=== PATIENT | male | born 1965 | race Caucasian/White ===

== ENCOUNTER 2017-01-02 10:04 | Emergency (ER) | payer OTHER ==
[~2017-01-02] VITALS: Ht 170.2 cm; Wt 80.0 kg
[2017-01-02 10:07] VITALS: BP 139/67; PULSE 67; RESP 20; TEMP 97.6; O2SAT 98
[2017-01-02] MEDS ORDERED: LISI10TA3 PO (10:33)
[2017-01-02] MEDS ORDERED: PROZ20CA11 PO (10:33)
[2017-01-02] MEDS ORDERED: ABIL10TA8 PO (10:33)
[2017-01-02] MEDS ORDERED: TRAZ100T10 PO (10:34)
[2017-01-02] MEDS ORDERED: METO50TA PO (10:34)
[2017-01-02] MEDS ORDERED: BUSP5TAB PO (10:44)
--- NOTE | 2017-01-02 10:51 | PD ---
HPI Chief Complaint: Anxiety Time Seen by Provider: 10:25 Travel History International Travel<30 days: No Contact w/Intl Traveler<30days: No Traveled to known affect area: No History of Present Illness HPI 51-year-old male presents to the emergency department complaining of anxiety that started about 1 month ago. Patient states that he saw his PCP and he was prescribed albuterol and. Patient stated this medication did not work. Patient also states she saw his psychiatrist and prescribed Prozac and has been on this medication for 1-2 weeks. Patient states this medication is not helping either. Patient has a history of drug or phobia and has been well up until about one month ago. Previously patient examined asked with good relief. 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 Patient has a history of high blood pressure and takes metoprolol lisinopril. Patient has fever, chills, pain. Patient currently lives with his partner at home. He denies suicidal or homicidal ideations. PFSH Past Medical History Depression: Yes High Cholesterol: Yes Hypertension: Yes Tetanus Vaccination: Unknown Influenza Vaccination: No Past Surgical History Tonsillectomy: Yes Social History Alcohol Use: Yes Tobacco Use: Yes (1/2 ppd - 1ppd) Substance Use: No Allergies-Medications (Allergen,Severity, Reaction): Coded Allergies: Sulfa (Sulfonamide Antibiotics) (Verified Allergy, Unknown, SOB, 01/02/17) Reported Meds & Prescriptions Reported Meds & Active Scripts Active Klonopin (Clonazepam) 1 Mg Tab 1 Mg PO BID Reported Trazodone (Trazodone HCl) 100 Mg Tablet 200 Mg PO HS Metoprolol Tartrate 50 Mg Tab 50 Mg PO DAILY Lisinopril 10 Mg Tab 10 Mg PO DAILY Abilify (Aripiprazole) 10 Mg Tab 10 Mg PO DAILY Prozac (Fluoxetine HCl) 20 Mg Cap 20 Mg PO DAILY Review of Systems Except as stated in HPI: all other systems reviewed are Neg Physical Exam Narrative GENERAL: Well-nourished, well-developed patient. Mildly anxious SKIN: Focused skin assessment warm/dry. HEAD: Normocephalic. EYES: No scleral icterus. No injection or drainage. NECK: Supple, trachea midline. No JVD CARDIOVASCULAR: Regular rate and rhythm without murmurs, gallops, or rubs. RESPIRATORY: Breath sounds equal bilaterally. No accessory muscle use. MUSCULOSKELETAL: No cyanosis, or edema. BACK: Nontender without obvious deformity. No CVA tenderness. Data Data Last Documented VS Vital Signs Date Time Temp Pulse Resp B/P (MAP) Pulse Ox O2 Delivery O2 Flow Rate FiO2 01/02/17 10:07 97.6 67 20 139/67 (91) 98 Room Air Orders Orders Alprazolam (Xanax) (01/02/17 11:00) Psych Screen (01/02/17 11:12) Clonazepam (Klonopin) (01/02/17 21:00) Ed Discharge Order (01/02/17 14:03) MDM Medical Decision Making Medical Screen Exam Complete: Yes Emergency Medical Condition: Yes Differential Diagnosis Panic attack versus anxiety versus depression Narrative Course 51-year-old male presents to the emergency department complaining of anxiety that started about 1 month ago. Patient states that he saw his PCP and he was prescribed albuterol and. Patient stated this medication did not work. Patient also states she saw his psychiatrist and prescribed Prozac and has been on this medication for 1-2 weeks. Patient states this medication is not helping either. Patient has a history of drug or phobia and has been well up until about one month ago. Previously patient examined asked with good relief. 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 Patient has a history of high blood pressure and takes metoprolol and lisinopril. Patient denies fever, chills, pain. Patient denies suicidal or homicidal ideations. Patient follows [facility] psychiatry. Vital signs stable Physical exam unremarkable except for anxiety. Patient follow-up with psychiatry for consideration of another medication for his anxiety. Patient would like evaluation by our psychiatrist in the emergency department. Thank you Dr. Cornelius for evaluating and treating this patient. Patient will be discharged with medication and advised follow-up with psychology. Diagnosis Primary Impression: Anxiety Referrals: Primary Care Physician Psychiatrist Additional Instructions: Follow-up with you primary care physician and psychiatrist as soon as possible. If you develop tremors or increased anxiety stop clonipin and return to primary care physician. If your symptoms persist or worsen return to the emergency department. Scripts Clonazepam (Klonopin) 1 Mg Tab 1 MG PO BID for Anxiety and/or Insomnia, #20 TAB 0 Refills Prov: Tejinder Cornelius MD 01/02/17 Disposition: 01 DISCHARGE HOME Condition: Stable Nena Cardoza Jan 02, 2017 10:51
[2017-01-02] MEDS ORDERED: ALPRAZolam 0.5 MG TAB PO ONE (11:00)
[2017-01-02] MEDS ORDERED: CLON1 PO (12:39)
--- NOTE | 2017-01-02 12:41 | PD ---
History of Present Illness Chief Complaint: Anxiety Time Seen by Provider: 12:30 Travel History International Travel<30 Days: No Contact w/Intl Traveler<30days: No Known affected area: No Legal Status Legal Status: Voluntary History of Present Illness: 51-year-old male presents voluntarily with complaints of anxiety and anicteric attacks. Patient treated in the past with Xanax and currently being treated at [facility]. This physician recommends and prescribes Klonopin 1 mg every 12 hours when necessary panic attacks. Patient has no suicidal or homicidal ideation, plan or intent. No psychotic symptoms and his cognition is intact. PFSH Past Medical History Depression: Yes High Cholesterol: Yes Hypertension: Yes Tetanus Vaccination: Unknown Influenza Vaccination: No Past Surgical History Tonsillectomy: Yes Psychiatric History Psychiatric History History of Inpatient Treatment: No Guns or firearms in home: No Social History Hx Alcohol Use: Yes Hx Tobacco Use: Yes (1/2 ppd - 1ppd) Hx Substance Use: No Allergies-Medications (Allergen,Severity, Reaction): Coded Allergies: Sulfa (Sulfonamide Antibiotics) (Verified Allergy, Unknown, SOB, 01/02/17) Reported Meds & Prescriptions Reported Meds & Active Scripts Active Klonopin (Clonazepam) 1 Mg Tab 1 Mg PO BID Reported Trazodone (Trazodone HCl) 100 Mg Tablet 200 Mg PO HS Metoprolol Tartrate 50 Mg Tab 50 Mg PO DAILY Lisinopril 10 Mg Tab 10 Mg PO DAILY Abilify (Aripiprazole) 10 Mg Tab 10 Mg PO DAILY Prozac (Fluoxetine HCl) 20 Mg Cap 20 Mg PO DAILY Review of Systems Psychiatric: COMPLAINS OF: Anxiety Except as stated in HPI: all other systems reviewed are Neg Mental Status Examination Appearance: Appropriate Consciousness: Alert Orientation: x4 Motor Activity: Normal gait Speech: Unremarkable Language: Adequate Fund of Knowledge: Adequate Attention and Concentration: Adequate Memory: Unremarkable Mood: Appropriate Affect: Appropriate Thought Process & Associations: Intact Thought Content: Appropriate Hallucination Type: None Delusion Type: None Suicidal Ideation: No Suicidal Plan: No Suicidal Intention: No Homicidal Ideation: No Homicidal Plan: No Homicidal Intention: No Insight: Adequate Judgment: Adequate MDM Medical Decision Making Medical Record Reviewed: Yes Assessment/Plan Patient interviewed at bedside with spouse. Medical record reviewed. Case discussed with nurse and physician technical support assistant. Patient given informed consent for Klonopin. He will follow up with his psychiatrist at [facility]. Orders Orders Alprazolam (Xanax) (01/02/17 11:00) Psych Screen (01/02/17 11:12) Results Vital Signs Date Time Temp Pulse Resp B/P (MAP) Pulse Ox O2 Delivery O2 Flow Rate FiO2 01/02/17 10:07 97.6 67 20 139/67 (91) 98 Room Air Diagnosis Primary Impression: Panic disorder Referrals: Primary Care Physician Psychiatrist Additional Instructions: Follow-up with you primary care physician and psychiatrist as soon as possible. If you develop tremors or increased anxiety stop buspirone and return to primary care physician. If your symptoms persist or worsen return to the emergency department. Prescriptions Clonazepam (Klonopin) 1 Mg Tab 1 MG PO BID for Anxiety and/or Insomnia, #20 TAB 0 Refills Prov: Tejinder Cornelius MD 01/02/17 Disposition: 01 DISCHARGE HOME Condition: Stable Tejinder Cornelius MD Jan 02, 2017 12:41
[2017-01-02] MEDS ORDERED: clonazePAM 1 MG TAB PO SCH (21:00)
== END 2017-01-02 14:11 | disposition home or self-care (01) ==
LOC: NEPD 10:04
DX: F41.0 Panic disorder [episodic paroxysmal anxiety] (principal); F32.9 Major depressive disorder, single episode, unspecified; E78.00 Pure hypercholesterolemia, unspecified; I10 Essential (primary) hypertension; F17.200 Nicotine dependence, unspecified, uncomplicated; Z79.899 Other long term (current) drug therapy; Z88.2 Allergy status to sulfonamides
CPT/HCPCS: 99283

== ENCOUNTER 2017-01-28 10:07 | Emergency (ER) | payer OTHER ==
[~2017-01-28] VITALS: Ht 172.7 cm; Wt 80.0 kg
[~2017-01-28 10:07] MED LIST: ABIL10TA8 PO; CLON1 PO; LISI10TA3 PO; METO50TA PO; PROZ20CA11 PO; TRAZ100T10 PO
[2017-01-28 10:09] VITALS: BP 137/86; PULSE 74; RESP 16; TEMP 97.8; O2SAT 94
[2017-01-28] MEDS ORDERED: AUGM875T3 PO (10:18)
[2017-01-28] MEDS ORDERED: predniSONE 20 MG TAB PO ONE ×2 (10:30→10:45)
--- NOTE | 2017-01-28 10:31 | PD ---
HPI Chief Complaint: Respiratory Symptoms Time Seen by Provider: 10:18 Travel History International Travel<30 days: No Contact w/Intl Traveler<30days: No Traveled to known affect area: No History of Present Illness HPI 51-year-old male, with history of COPD, presents emergency Department with complaint of chest congestion, cough and a half to 2 weeks. Seen at urgent care last Friday and was given Augmentin, which he has been taking for one week without improvement in symptoms. Had a nurse that he knows listened to his lungs 2 days ago and then again this morning and was told that he probably has bronchitis. Reports wheezing. Reports "some "shortness of breath and chest tightness. Denies chest pain. Denies fevers, vomiting. Denies nasal congestion, ear pain. Reports throat irritation. Some been taking any other medications or trying either treatments to alleviate his symptoms. No known relieving or aggravating factors. Allergies to sulfa. Dr. Gilmore is primary care provider. Has no other medical complaints. No other modifying factors or associated signs and symptoms. PFSH Past Medical History Depression: Yes High Cholesterol: Yes Hypertension: Yes Psychiatric: Yes Tetanus Vaccination: < 5 Years Past Surgical History Tonsillectomy: Yes Social History Alcohol Use: Yes Tobacco Use: Yes (1/2 ppd - 1ppd) Substance Use: No Allergies-Medications (Allergen,Severity, Reaction): Coded Allergies: Sulfa (Sulfonamide Antibiotics) (Verified Allergy, Unknown, SOB, 01/28/17) Reported Meds & Prescriptions Reported Meds & Active Scripts Active Tessalon Perles (Benzonatate) 100 Mg Cap 100 Mg PO TID PRN Ventolin Hfa 18 GM Inh (Albuterol Sulfate) 90 Mcg/Act Aer 2 Puff INH Q4-6H PRN Deltasone (Prednisone) 20 Mg Tab 20 Mg PO BID 5 Days Klonopin (Clonazepam) 1 Mg Tab 1 Mg PO BID Reported Augmentin (Amoxicillin-Clavulanate) 875-125 Mg Tab 1 Tab PO BID Trazodone (Trazodone HCl) 100 Mg Tablet 200 Mg PO HS Metoprolol Tartrate 50 Mg Tab 50 Mg PO DAILY Lisinopril 10 Mg Tab 10 Mg PO DAILY Abilify (Aripiprazole) 10 Mg Tab 10 Mg PO DAILY Review of Systems Except as stated in HPI: all other systems reviewed are Neg Physical Exam Narrative GENERAL: Well-nourished, well-developed male patient, in no acute distress; afebrile, nontoxic-appearing SKIN: Warm and dry. HEAD: Atraumatic. Normocephalic. EYES: Pupils equal and round. No scleral icterus. No injection or drainage. ENT: Mucosa pink and moist. No erythema or exudates. No uvular edema. No uvular , palatal, or tonsillar deviation. Airway patent. Nares without nasal blood, purulent drainage. EARS: Bilateral pinnae and external canals appear within normal limits. Bilateral tympanic membranes without erythema, dullness or perforation. NECK: Trachea midline. No lymphadenopathy. CARDIOVASCULAR: Regular rate and rhythm. No murmur appreciated. RESPIRATORY: No accessory muscle use. Lungs with Wheezing throughout to auscultation. Breath sounds equal bilaterally. No retractions or tachypnea. No Audible wheezing noted. GASTROINTESTINAL: Abdomen soft, non-tender, nondistended. Hepatic and splenic margins not palpable. Bowel sounds are active 4 quadrants. MUSCULOSKELETAL: No obvious deformities. No clubbing. No cyanosis. No edema. NEUROLOGICAL: Awake and alert. Oriented 3. No obvious cranial nerve deficits. Motor grossly within normal limits. Normal speech. Moves all extremities. 5/5 strength to all extremities. PSYCHIATRIC: Appropriate mood and affect; insight and judgment normal. Data Data Last Documented VS Vital Signs Date Time Temp Pulse Resp B/P (MAP) Pulse Ox O2 Delivery O2 Flow Rate FiO2 01/28/17 11:12 93 Room Air 01/28/17 10:09 97.8 74 16 Orders Orders Chest, Single Ap (01/28/17 10:25) Prednisone (Deltasone) (01/28/17 10:30) Albuterol Neb (Albuterol Neb) (01/28/17 10:30) Prednisone (Deltasone) (01/28/17 10:45) Ed Discharge Order (01/28/17 11:15) MDM Medical Decision Making Medical Screen Exam Complete: Yes Emergency Medical Condition: Yes Medical Record Reviewed: Yes Differential Diagnosis Pneumonia, bronchitis, COPD exacerbation Narrative Course 51-year-old male, with history of COPD, with viral illness and exacerbation. No acute distress. Lungs with wheezing throughout. No retractions or tachypnea. Oxygen saturation is 94% on room air. She is currently taking Augmentin times one week. Denies fevers. Patient is afebrile and nontoxic- appearing. Prednisone, albuterol nebulizers, chest x-ray ordered. 1057: Chest x-ray concludes: Chest X-Ray 01/28/17 1025 Signed Impressions: Service Date/Time: Saturday, January 28, 2017 10:28 - CONCLUSION: Normal examination. Papa Pike MD Patient Provided a copy of the x-ray report. Reexamination patient has very mild wheezing in the bilateral bases. He reports improvement in symptoms. Denies as tightness or shortness of breath. Oxygen saturation is 94% on room air. Dr. Motley agrees with discharge. Patient feels comfortable discharge. Instructed patient to follow up with plastics process hand. Instructed patient to follow up with primary care provider. Patient verbalizes understanding and agreement with treatment plan. Patient is medically cleared and stable for discharge. Discussed reasons to return to the emergency department. Patient agrees with treatment plan. The patients vital signs are stable and the patient is stable for outpatient follow-up and treatment. Patient discharged home, stable and in no acute distress. Diagnosis Primary Impression: Bronchitis Referrals: Primary Care Physician [facility] Patient Instructions: Acute Bronchitis (ED), COPD (Chronic Obstructive Pulmonary Disease) (ED), General Instructions Additional Instructions: Use Albuterol inhaler as prescribed Take oral steroids as prescribed and complete full course Use Tessalon Perles as prescribed to decrease coughing spasms [id number] decongestants or antihistamines as directed and as needed for symptom management Your cough can last 4-6 weeks Drink plenty of fluids to prevent dehydration Use hot air humidifier to decrease cough exacerbation Turn off ceiling fans and sleep with head of bed elevated Avoid triggers such as second hand smoke, dust, known allergens Follow-up with your primary care provider Return to the emergency department immediately with worsening of symptoms Med/Other Pt SpecificInfo: Prescription(s) given Scripts Benzonatate (Tessalon Perles) 100 Mg Cap 100 MG PO TID Y for COUGH, #10 CAP 0 Refills Prov: Beverly Jmienez DEV OPS ENGINEER 01/28/17 Albuterol 18 GM Inh (Ventolin Hfa 18 GM Inh) 90 Mcg/Act Aer 2 PUFF INH Q4-6H Y for SOB/WHEEZING, #1 INHALER 0 Refills Prov: Beverly Jimenez DEV OPS ENGINEER 01/28/17 Prednisone (Deltasone) 20 Mg Tab 20 MG PO BID for 5 Days, #10 TAB 0 Refills Prov: Beverly Jimenez 01/28/17 Disposition: 01 DISCHARGE HOME Condition: Stable Beverly Jimenez Jan 28, 2017 10:31
[2017-01-28] MEDS: RESP: ALBUTEROL 2.5 MG/3 ML NEB (SCH) INH ×2 (10:33→10:34)
[2017-01-28] MEDS ORDERED: PRED-503 PO (10:41)
[2017-01-28] MEDS ORDERED: VENTAER INH (10:41)
--- NOTE | 2017-01-28 10:48 | RADRPT ---
EXAM DATE/TIME: 01/28/2017 10:28 [facility] COMPARISON: No previous studies available for comparison. INDICATIONS : Cough, congestion, shortness of breath. MEDICAL HISTORY : Hypertension. Smoker. SURGICAL HISTORY : None. ENCOUNTER: Initial ACUITY: 2 weeks PAIN SCORE: 0/10 LOCATION: Bilateral chest FINDINGS: A single view of the chest demonstrates the lungs to be symmetrically aerated without evidence of mas s, infiltrate or effusion. The cardiomediastinal contours are unremarkable. Osseous structures are intact. CONCLUSION: Normal examination. Papa Pike MD on January 28, 2017 at 10:46 Board Certified Radiologist. This report was verified electronically.
[2017-01-28] MEDS ORDERED: BENZ100 PO (11:00)
[2017-01-28 11:12] VITALS: O2SAT 93
== END 2017-01-28 11:21 | disposition home or self-care (01) ==
LOC: NEPD 10:07
DX: J44.9 Chronic obstructive pulmonary disease, unspecified (principal); F17.200 Nicotine dependence, unspecified, uncomplicated; I10 Essential (primary) hypertension; E78.00 Pure hypercholesterolemia, unspecified; F32.9 Major depressive disorder, single episode, unspecified
CPT/HCPCS: 71010; 94640; 94664; 99284; J7512; J7613

== ENCOUNTER 2017-04-03 09:39 | Emergency (ER) | payer OTHER ==
[~2017-04-03] VITALS: Ht 172.7 cm; Wt 80.0 kg
[~2017-04-03 09:39] MED LIST changes: +AUGM875T3 PO; +BENZ100 PO; +PRED-503 PO; -PROZ20CA11 PO; +VENTAER INH
[2017-04-03 09:40] VITALS: BP 161/89; PULSE 69; RESP 18; TEMP 98.2; O2SAT 98
[2017-04-03] MEDS ORDERED: VIST50CA PO (10:18)
--- NOTE | 2017-04-03 10:18 | PD ---
HPI Chief Complaint: Medication Refill Request Time Seen by Provider: 09:59 Travel History International Travel<30 days: No Contact w/Intl Traveler<30days: No Traveled to known affect area: No History of Present Illness HPI 51 year old male presents to the emergency department requesting refill of his Klonopin. Patient was here in December and saw psychiatrist, Dr. Cornelius. He was prescribed Klonopin at that time. He states he followed up with another psychiatrist who cut his Klonopin down. He states that he will not see the psychiatrist because she decreased his dose of Klonopin. He is now out of his Klonopin is requesting a refill. Patient denies any medical complaints at this time. He appears well. Mild severity. No exacerbating or alleviating factors. PFSH Past Medical History Depression: Yes High Cholesterol: Yes Hypertension: Yes Psychiatric: Yes Past Surgical History Tonsillectomy: Yes Social History Alcohol Use: Yes Tobacco Use: Yes (1/2 ppd - 1ppd) Substance Use: No Allergies-Medications (Allergen,Severity, Reaction): Coded Allergies: Sulfa (Sulfonamide Antibiotics) (Verified Allergy, Unknown, SOB, 01/28/17) Reported Meds & Prescriptions Reported Meds & Active Scripts Active Tessalon Perles (Benzonatate) 100 Mg Cap 100 Mg PO TID PRN Ventolin Hfa 18 GM Inh (Albuterol Sulfate) 90 Mcg/Act Aer 2 Puff INH Q4-6H PRN Deltasone (Prednisone) 20 Mg Tab 20 Mg PO BID 5 Days Klonopin (Clonazepam) 1 Mg Tab 1 Mg PO BID Reported Augmentin (Amoxicillin-Clavulanate) 875-125 Mg Tab 1 Tab PO BID Trazodone (Trazodone HCl) 100 Mg Tablet 200 Mg PO HS Metoprolol Tartrate 50 Mg Tab 50 Mg PO DAILY Lisinopril 10 Mg Tab 10 Mg PO DAILY Abilify (Aripiprazole) 10 Mg Tab 10 Mg PO DAILY Review of Systems Except as stated in HPI: all other systems reviewed are Neg Physical Exam Narrative GENERAL: Well-nourished, well-developed male patient, ambulatory. Afebrile. SKIN: Focused skin assessment warm/dry. HEAD: Normocephalic. Atraumatic. EYES: No scleral icterus. No injection or drainage. NECK: Supple, trachea midline. No JVD or lymphadenopathy. CARDIOVASCULAR: Regular rate and rhythm without murmurs, gallops, or rubs. RESPIRATORY: Breath sounds equal bilaterally. No accessory muscle use. Lungs sounds are clear to auscultation. GASTROINTESTINAL: Abdomen soft, non-tender, nondistended. MUSCULOSKELETAL: No cyanosis, or edema. PSYCHIATRIC: No delusional thought processes. No hallucinations. Data Data Last Documented VS Vital Signs Date Time Temp Pulse Resp B/P (MAP) Pulse Ox O2 Delivery O2 Flow Rate FiO2 04/03/17 09:40 98.2 69 18 161/89 (113) 98 Orders Orders Hydroxyzine Pamoate (Vistaril) (04/03/17 10:15) [facility] Medical Decision Making Medical Screen Exam Complete: Yes Emergency Medical Condition: Yes Medical Record Reviewed: Yes Differential Diagnosis Medication refill versus anxiety versus medical clearance Narrative Course 51-year-old male presents to the emergency department requesting a refill of his Klonopin. He has no medical complaints at this time. Vital signs are stable and he appears well. I instructed him that it is our policy that we do not refill controlled substances in the emergency department he needs to follow up with his psychiatrist. I did offer to give him a Vistaril and start him on Vistaril for his anxiety until he can see his psychiatrist. He agrees with this and states he will call his psychiatrist today. The patient was discharged in stable condition with instructions, including return instructions and follow up instructions. Diagnosis Primary Impression: Medication refill Additional Impression: Anxiety Referrals: Psychiatrist call for appointment Patient Instructions: Anxiety (ED), General Instructions, Medication Refill, ED Additional Instructions: Follow-up with your psychiatrist for a refill of your Klonopin. Take Vistaril as directed as needed for anxiety. Return to the emergency department for any acute worsening of symptoms. Med/Other Pt SpecificInfo: Prescription(s) given Scripts Hydroxyzine Pamoate (Vistaril) 50 Mg Cap 50 MG PO TID Y for ANXIETY, #21 CAP 0 Refills Prov: Enid Cole 04/03/17 Disposition: 01 DISCHARGE HOME Condition: Stable Enid Cole Apr 03, 2017 10:18
== END 2017-04-03 10:29 | disposition home or self-care (01) ==
LOC: NEPK 09:39
DX: F41.9 Anxiety disorder, unspecified (principal); F17.200 Nicotine dependence, unspecified, uncomplicated; Z76.0 Encounter for issue of repeat prescription
CPT/HCPCS: 99283